=== PATIENT | female | born 1990 | race African-American/Black ===

== ENCOUNTER 2023-05-31 15:10 | Emergency (ER) | payer BC, MEDICAID ==
[~2023-05-31] VITALS: Ht 167.6 cm; Wt 91.0 kg
[2023-05-31 16:10] VITALS: O2SAT 99
[2023-05-31 18:36] VITALS: BP 136/64; PULSE 101; RESP 16; TEMP 98.6
== END 2023-05-31 18:37 | disposition home or self-care (01) ==
LOC: ER 15:49
DX: O98.511 Other viral diseases complicating pregnancy, first trimester (principal); U07.1 COVID-19; O99.511 Diseases of the respiratory system complicating pregnancy, first trimester; J98.8 Other specified respiratory disorders; Z3A.13 13 weeks gestation of pregnancy
CPT/HCPCS: 76801; 99284

== ENCOUNTER 2023-06-05 20:27 | Emergency (ER) | payer BC ==
[~2023-06-05] VITALS: Ht 167.6 cm; Wt 90.7 kg
[2023-06-05 20:47] VITALS: BP 131/68; PULSE 99; RESP 16; O2SAT 99
[2023-06-05 21:45] VITALS: TEMP 98.5
[2023-06-05] MEDS ORDERED: ACETAMINOPHEN 500MG TABLET PO ONE (21:45)
[2023-06-05 21:59] LABS: CLARITY URINE TURBID (CLEAR); COLOR URINE YELLOW (YELLOW)
[2023-06-05 22:00] LABS: GLUCOSE URINE NEGATIVE (NEGATIVE); KETONES URINE NEGATIVE (NEGATIVE); LEUKOCYTE ESTERASE URINE NEGATIVE (NEGATIVE); NITRITE URINE NEGATIVE (NEGATIVE); OCCULT BLOOD URINE 2+ (NEGATIVE); PH URINE 6.5 (4.5-8.0); PROTEIN URINE NEGATIVE (NEGATIVE); SPECIFIC GRAVITY URINE 1.021 (1.005-1.030); UROBILINOGEN URINE 0.2 E.U./dL (0.2-1.0)
[2023-06-05 22:09] LABS: BASOPHILS % 0.2 % (0.0-2.0); EOSINOPHILS % 3.6 % (0.0-5.0); HEMATOCRIT. 38.5 % (36.0-48.0); HEMOGLOBIN. 12.5 g/dL (12.0-16.0); LYMPHOCYTES % 19.3 % (20.0-50.0); MEAN CORPUSCULAR HEMOGLOBIN 31.4 pg (28.0-32.0); MEAN CORPUSCULAR HGB CONC 32.6 g/dL (31.0-37.0); MEAN CORPUSCULAR VOLUME 96.5 fL (81.0-99.0); MEAN PLATELET VOLUME 7.8 fl (7.4-10.4); NEUTROPHILS % 70.9 % (40.0-76.0); PLATELET 248 x1000/uL (130-400); RED BLOOD CELL COUNT 3.99 mill/uL (4.2-5.4); WHITE BLOOD COUNT 11.8 x1000/uL (4.5-11.0)
[2023-06-05 22:16] LABS: SQUAMOUS EPITHELIAL CELL URINE 1+ /lpf (RARE/1+); WBC URINE 0-2 /hpf (0-2)
[2023-06-05 22:17] LABS: BACTERIA URINE 1+
[2023-06-05 22:42] LABS: ALANINE AMINOTRANSFERASE 10 IU/L (10-49); ASPARTATE AMINOTRANSFERASE 12 IU/L (<34); BILIRUBIN TOTAL 0.4 mg/dL (0.1-1.0); CALCIUM 9.8 mg/dL (8.7-10.4); CARBON DIOXIDE 24 mEq/L (21-32); CHLORIDE 103 mEq/L (98-107); CREATININE 0.5 mg/dL (0.6-1.0); GLUCOSE 120 mg/dL (70-105); POTASSIUM 3.6 mEq/L (3.5-5.1); PROTEIN TOTAL 7.3 g/dL (6.0-8.3); SODIUM 136 mEq/L (136-145); UREA NITROGEN BLOOD 6 mg/dL (9-23)
== END 2023-06-06 01:56 | disposition home or self-care (01) ==
LOC: ER 20:27
DX: O20.0 Threatened abortion (principal); O24.419 Gestational diabetes mellitus in pregnancy, unspecified control; Z3A.12 12 weeks gestation of pregnancy; Z98.890 Other specified postprocedural states
CPT/HCPCS: 36415; 76801; 80053; 81003; 81025; 84702; 85025; 86850; 86900; 99284